=== PATIENT | male | born 1985 | race Caucasian/White ===

== ENCOUNTER 2017-06-01 16:50 | Emergency (ER) | payer OTHER ==
[~2017-06-01] VITALS: Ht 175.3 cm; Wt 82.7 kg
[2017-06-01] MEDS ORDERED: SODIUM CHLORIDE FLUSH 10ML SYR IVF ONE (18:00)
[2017-06-01] MEDS ORDERED: SODIUM CHLORIDE 0.9% 1,000ML IVBOLUS ONE (18:00)
[2017-06-01 18:12] LABS: RAPID INFLUENZA A Negative (Negative); RAPID INFLUENZA B Negative (Negative)
[2017-06-01] MEDS ORDERED: ACETAMINOPHEN 325 MG TABLET PO ONE (18:30)
[2017-06-01] MEDS ORDERED: ACETAMINOPHEN 325 MG TABLET ONE (18:36)
[2017-06-01 19:27] VITALS: BP 135/75
== END 2017-06-01 19:30 | disposition home or self-care (01) ==
LOC: ED 19:10
DX: J18.1 Lobar pneumonia, unspecified organism (principal)
CPT/HCPCS: 71020; 87400; 96360; 99285; J7030

== ENCOUNTER 2019-08-09 18:44 | Emergency (ER) | payer SELFPAY ==
[~2019-08-09] VITALS: Ht 175.3 cm; Wt 88.5 kg
[2019-08-09 18:58] VITALS: BP 120/82
--- NOTE | 2019-08-09 19:21 | NUR ---
Xray at bedside.
--- NOTE | 2019-08-09 20:02 | NUR ---
Provider at bedside.
--- NOTE | 2019-08-09 20:07 | NUR ---
At time of d/c, pt alert, oriented and ambulatory. Pt declined offer for crutches. Pt educated on home care, OTC meds and follow-up. Pt VU. Pt ambulatory out of ER.
== END 2019-08-09 20:09 | disposition home or self-care (01) ==
LOC: ED 19:50
DX: S90.32XA Contusion of left foot, initial encounter (principal); W20.8XXA Other cause of strike by thrown, projected or falling object, initial encounter; Y93.89 Activity, other specified; Y92.009 Unspecified place in unspecified non-institutional (private) residence as the place of occurrence of the external cause; Y99.8 Other external cause status
CPT/HCPCS: 99284

== ENCOUNTER 2020-01-16 16:47 | Emergency (ER) | payer MEDICAID ==
[~2020-01-16] VITALS: Ht 172.7 cm; Wt 84.1 kg
[2020-01-16 18:16] VITALS: BP 111/72
--- NOTE | 2020-01-16 19:15 | NUR ---
Pt back to room
--- NOTE | 2020-01-16 19:16 | NUR ---
Pt here after missing two steps on the stairs and fell and twisted his ankle. Moderate swelling noted. Pt has full cms intact and reports no leg pain. Pt reports no other pain. Pt has good sensation as well.
--- NOTE | 2020-01-16 19:36 | NUR ---
Rajesh requested from central, on its way.
--- NOTE | 2020-01-16 20:15 | NUR ---
Patient/Caregiver given discharge instructions and they have confirmed that they understand the instructions. Patient ambulatory with steady gait.
== END 2020-01-16 20:17 | disposition home or self-care (01) ==
LOC: ED 19:32
DX: S93.492A Sprain of other ligament of left ankle, initial encounter (principal); W10.9XXA Fall (on) (from) unspecified stairs and steps, initial encounter; Y93.89 Activity, other specified; Y92.009 Unspecified place in unspecified non-institutional (private) residence as the place of occurrence of the external cause; Y99.8 Other external cause status
CPT/HCPCS: 99283

== ENCOUNTER 2020-03-11 18:21 | Emergency (ER) | payer MEDICAID ==
[~2020-03-11] VITALS: Ht 175.3 cm; Wt 85.0 kg
--- NOTE | 2020-03-11 19:52 | NUR ---
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
--- NOTE | 2020-03-11 20:20 | NUR ---
PT TO ROOM AT THIS TIME.
--- NOTE | 2020-03-11 20:25 | NUR ---
PT ARRIVES TO ED FOR CONCERN OF PNEUMONIA. PT REPORTS history of. Pt reports that he has had severe pneumonia but in the past years a Z-pack have helped cleared it. Pt reports that he has felt more tired and fatigued. Denies exposure to covid but patient reports he has 2 children in day care at this time. Pt on arrival connected to spo2 and nipb monitor. Pt in room and call light in reach. Awaiting further orders.
[2020-03-11 21:13] VITALS: BP 126/73
--- NOTE | 2020-03-11 21:13 | NUR ---
assist rn: re-evaluation done. patient discharged with prescription and instruction. verbalized understanding.
== END 2020-03-11 21:16 | disposition home or self-care (01) ==
LOC: ED 21:00
DX: J06.9 Acute upper respiratory infection, unspecified (principal); R05 Cough; Z20.828 Contact with and (suspected) exposure to other viral communicable diseases; R06.00 Dyspnea, unspecified
CPT/HCPCS: 36415; 71045; 87635; 99284